=== PATIENT | male | born 1950 | race Caucasian/White ===

== ENCOUNTER 2020-01-13 08:31 | Inpatient (IN) ==
--- NOTE | 2019-12-29 10:31 | Anesthesiology Consultation ---
Date of Service December 29, 2019 Assessment & Plan (1) Encounter for pre-operative examination: Per PAT assessment on 12/28: Travel screen negative. No known COVID-19 positive contacts. No current COVID-19 related symptoms. No hx of COVID-19 testing. - Cardiology office visit: 11/25/19: "Patient feeling well from a cardiovascular perspective. Denies chest pain or unusual shortness of breath. Metoprolol dose reduced approximately 2 months ago secondary to dyspnea.. Functional capacity is stable." F/U 6 months recommended. Chart Review Chart Review: Acceptable Risk for Surgery and Patient seen in Pre Admission Testing Teaching & Discussion Pre-Anesthesia Teaching/Discussion Notes: Instructed NPO after midnight before surgery,except medications with 15 cc of water. Medication instructions provided according to the [facility] guidelines. History Surgery Operation Date: 01/13/20 07:45 Proposed Procedures p L5-S1 Decompression Fusion, Spinal Cord Monitoring - Jcarlos Mathews DO Height/Weight Height: 6 ft 1 in Weight: 106.9 kg Allergies Allergy/AdvReac Type Severity Reaction Status Date / Time gabapentin AdvReac dizziness Verified 12/29/19 10:48 Medications Home Medications Medication Instructions Recorded Confirmed Last Taken ascorbic acid (vitamin C) [Vitamin 1 g PO QAM 12/29/19 12/29/19 Unknown C] atorvastatin 20 mg PO QAM 12/29/19 12/29/19 Unknown cholecalciferol (vitamin D3) 1,000 unit PO QAM 12/29/19 12/29/19 Unknown [Vitamin D3] fexofenadine 180 mg PO QAM 12/29/19 12/29/19 Unknown fish,bora,flax oils-om3,6,9no1 1 cap PO QAM 12/29/19 12/29/19 Unknown [[place] 3-6-9] garlic 1,000 mg PO QAM 12/29/19 12/29/19 Unknown hydrochlorothiazide 25 mg PO QAM 12/29/19 12/29/19 Unknown hydrocortisone 1 applic TOPICAL TID 12/29/19 12/29/19 Unknown meloxicam 7.5 mg PO DAILY PRN 12/29/19 12/29/19 Unknown metoprolol tartrate 50 mg PO BID 12/29/19 12/29/19 Unknown hlztkojv-hbp-hrour-vit K-lycop 1 tab PO QAM 12/29/19 12/29/19 Unknown [One-A-Day Men's Multivitamin] omeprazole 20 mg PO BID 12/29/19 12/29/19 Unknown polyethylene glycol 3350 [Miralax] 17 g PO HS 12/29/19 12/29/19 Unknown pseudoephedrine HCl 120 mg PO Q12H PRN 12/29/19 12/29/19 Unknown saw palmetto fruit 450 mg PO QAM 12/29/19 12/29/19 Unknown tamsulosin 0.4 mg PO QAM 12/29/19 12/29/19 Unknown zinc 50 mg PO QAM 12/29/19 12/29/19 Unknown Past Medical History Medical History Chronic kidney disease, stage 3 DDD (degenerative disc disease) GERD (gastroesophageal reflux disease) controlled Hearing deficit B/L DOBBINS History of anxiety History of intestinal obstruction HTN (hypertension) Hyperlipidemia Introsusception s/p surgical correction at 11 days old Osteoarthritis Prediabetes Sleep apnea did not tolerate device/since has had significant weight loss Spinal stenosis Exercise / Class Metabolic Activity III < 4 Walking/Shop/Light housework Past Family History Family History Mother Diabetes Other No family history of adverse response to anesthesia Past Surgical History Surgical History History of cholecystectomy History of colonoscopy History of ERCP History of esophagogastroduodenoscopy (EGD) History of gastrostomy History of laparotomy x 2 for intestinal obstruction, lysis of adhesions - obstruction did not resolved after first surgery and 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 during second procedure requring emergency life flight to [facility] History of lumbar surgery X 3 History of tonsillectomy Status post trigger finger release Past Anesthesia History No Family Hx of Anesthesia Complications and Other (post-op constipation) History of PONV No Hx of PONV and No Hx of Motion Sickness Social History Smoking Status: Former smoker tobacco type: cigarettes Do You Dip or Chew Tobacco: No (QUIT YEARS AGO) Smoking End Date: QUIT YEARS AGO Hx Alcohol Use: Yes alcohol intake frequency: holidays/special occasions only Hx Substance Use: No Review of Systems Patient denies chest pain, shortness of breath, fever, chills, cough, wheezing, palpitations. Physical Exam Vital Signs VITALS BP 144/74 P 64 TEMP 98.6 SP02 95%RA RESP 18 PHYSICAL Full neck and c-spine range of motion. Full TMJ range of motion. TMD 3 finger breaths Mallampati Score 3 Dentition: partial upper Lungs: clear throughout to auscultation Cardiac: regular rate and rhythm, no murmurs noted Spine: normal Carotid arteries: negative bruit Extremities: no edema Testing Laboratory Results PT 10.4 Seconds (9.0-12.0) 12/29/19 11:05 INR 1.0 (0.9-1.1) 12/29/19 11:05 APTT 27.3 Seconds (21.0-31.0) 12/29/19 11:05 Urine Color Yellow 12/29/19 11:05 Urine Appearance Clear (Clear) 12/29/19 11:05 Urine pH 6.0 (4.5-7.5) 12/29/19 11:05 Ur Specific Economy 1.022 (1.000-1.030) 12/29/19 11:05 Urine Protein Negative (Negative) 12/29/19 11:05 Urine Glucose (UA) Negative (Negative) 12/29/19 11:05 Urine Ketones Negative (Negative) 12/29/19 11:05 Urine Nitrite Negative (Negative) 12/29/19 11:05 Ur Leukocyte Esterase Negative (Negative) 12/29/19 11:05 Blood Type O Positive 12/29/19 11:05 Antibody Screen NEGATIVE 12/29/19 11:05 12/01/19 WBC 7.75 H/H 16.8/49.7 PLATELETS 235 SODIUM 139 POTASSIUM 4.4 CHLORIDE 101 CO2 27 BUN 23 CREATININE 1.2 GLUCOSE 103 HGBA1C 5.9% Electrocardiogram Date: 12/15/19 SB with first degree AVB at 58bpm. Chest X-Ray Date: 09/03/19 Findings: + NAD
--- NOTE | 2019-12-29 11:11 | PAT Medication Instructions ---
Medication Instructions Date of Service December 29, 2019 Home Medications ascorbic acid (vitamin C) [Vitamin C] 1 g PO QAM atorvastatin 20 mg PO QAM cholecalciferol (vitamin D3) [Vitamin D3] 1,000 unit PO QAM fexofenadine 180 mg PO QAM fish,bora,flax oils-om3,6,9no1 [[place] 3-6-9] 1 cap PO QAM garlic 1,000 mg PO QAM hydrochlorothiazide 25 mg PO QAM hydrocortisone 1 applic TOPICAL TID meloxicam 7.5 mg PO DAILY PRN metoprolol tartrate 50 mg PO BID ujvivxpc-run-jxjuy-vit K-lycop [One-A-Day Men's Multivitamin] 1 tab PO QAM omeprazole 20 mg PO BID polyethylene glycol 3350 [Miralax] 17 g PO HS pseudoephedrine HCl 120 mg PO Q12H PRN saw palmetto fruit 450 mg PO QAM tamsulosin 0.4 mg PO QAM zinc 50 mg PO QAM ASK your surgeon for instructions meloxicam 7.5 mg PO DAILY PRN STOP taking 2 weeks before surgery zinc 50 mg PO QAM saw palmetto fruit 450 mg PO QAM fish,bora,flax oils-om3,6,9no1 [[place] 3-6-9] 1 cap PO QAM garlic 1,000 mg PO QAM STOP taking 24 hours before surgery hydrocortisone 1 applic TOPICAL TID DO NOT take the morning of surgery pseudoephedrine HCl 120 mg PO Q12H PRN mzzirtcp-bmi-shfpr-vit K-lycop [One-A-Day Men's Multivitamin] 1 tab PO QAM hydrochlorothiazide 25 mg PO QAM fexofenadine 180 mg PO QAM ascorbic acid (vitamin C) [Vitamin C] 1 g PO QAM cholecalciferol (vitamin D3) [Vitamin D3] 1,000 unit PO QAM Take morning of surgery With a small sip of water, OTHERWISE NOTHING TO EAT OR DRINK AFTER MIDNIGHT: tamsulosin 0.4 mg PO QAM omeprazole 20 mg PO BID metoprolol tartrate 50 mg PO BID atorvastatin 20 mg PO QAM Take evening before surgery pseudoephedrine HCl 120 mg PO Q12H PRN omeprazole 20 mg PO BID polyethylene glycol 3350 [Miralax] 17 g PO HS metoprolol tartrate 50 mg PO BID Other Notes If you have any questions please call us at [phone] or [phone] or [phone] or [phone]
[2019-12-29 12:08] LABS: Appearance Urine Clear (Clear); Bilirubin Urine Negative (Negative); Blood Urine Negative (Negative); Color Urine Yellow; Glucose Urine UA Negative (Negative); Ketones Urine Negative (Negative); Leukocyte Esterase Urine Negative (Negative); Nitrite Urine Negative (Negative); Protein Urine Negative (Negative); Specific Gravity Urine 1.022 (1.000-1.030); Urobilinogen Urine Negative (Negative)
[2019-12-29 12:17] LABS: Partial Thromboplastin Time 27.3 Seconds (21.0-31.0); Prothrombin Time 10.4 Seconds (9.0-12.0)
[~2020-01-13 08:31] MED LIST: ACETAMINOPHEN 500 MG TAB PO SCH; CEFAZOLIN 2000MG 2,000 MG/15 ML SYR IV SCH; CeleBREX 200 MG CAP PO SCH; GABAPENTIN 300 MG CAP PO SCH; LR 15ML/HR IV SCH
[2020-01-13] MEDS ORDERED: MIDAZOLAM HCL 1 MG/ML 2ML VIAL ONE (09:24)
[2020-01-13] MEDS ORDERED: DEXAMETHASONE SOD INJ 4 MG/ML VIAL ONE (09:24)
[2020-01-13] MEDS ORDERED: ONDANSETRON INJ 2 MG/ML 2 ML VIAL ONE ×2 (09:24→11:56)
[2020-01-13] MEDS ORDERED: GLYCOPYRROLATE 0.2 MG/ML VIAL ONE ×2 (09:24→11:56)
[2020-01-13] MEDS ORDERED: NEOSTIGMINE METHYLSULFATE 5 MG/5 ML SYR ONE (09:24)
[2020-01-13] MEDS ORDERED: PROPOFOL IV EMULSION 10 MG/ML 20 ML VIAL IV ONE (09:24)
[2020-01-13] MEDS ORDERED: LIDOCAINE HCL 2% 2 ML VIAL/AMP(20MG/ML) INFIL ONE (09:24)
[2020-01-13] MEDS ORDERED: fentaNYL citrate 100 MCG/2 ML VIAL ONE (09:24)
--- NOTE | 2020-01-13 09:27 | History & Physical Bridge Note ---
Date of Service January 13, 2020 History & Physical Bridge Note I have examined the patient, reviewed the History & Physical and in the interval since the performance of the History & Physical I have noted the following changes of clinical significance: no changes noted
[2020-01-13] MEDS ORDERED: HYDROmorphone INJ 2 MG/ML SYR/VIAL IV PRN (09:30)
[2020-01-13] MEDS ORDERED: ONDANSETRON INJ 2 MG/ML 2 ML VIAL IV PRN ×2 (09:30→13:31)
[2020-01-13] MEDS ORDERED: PROMETHAZINE HCL 6.25 MG in SODIUM CHLORIDE 0.9% 50 ML IV PRN (09:30)
[2020-01-13] MEDS ORDERED: ePHEDrine sulfate 50 MG/ML AMP IV PRN (09:30)
[2020-01-13] MEDS ORDERED: ATROPINE SULFATE 0.1 MG/ML 10ML SYR IV PRN (09:30)
--- NOTE | 2020-01-13 09:30 | History & Physical Report ---
Date of Service January 13, 2020 Assessment & Plan (1) Neurogenic claudication due to lumbar spinal stenosis: L5-S1 decompression fusion Present on Admission?: Yes History of Present Illness Chief Complaint: Back and leg pain Primary Care Provider: Arnol Gandhi DO This is a 69-year-old male well-known to me the presents with worsening back and leg pain. After failing extensive course of nonoperative care is here for surgical invention. Allergies Allergy/AdvReac Type Severity Reaction Status Date / Time gabapentin AdvReac Intermediate dizziness Verified 01/13/20 08:53 Home Medications Home Medications Medication Instructions Recorded Confirmed Type ascorbic acid (vitamin C) [Vitamin 1 g PO QAM 12/29/19 01/13/20 History C] atorvastatin 20 mg PO QAM 12/29/19 01/13/20 History cholecalciferol (vitamin D3) 1,000 unit PO QAM 12/29/19 01/13/20 History [Vitamin D3] fexofenadine 180 mg PO QAM 12/29/19 01/13/20 History fish,bora,flax oils-om3,6,9no1 1 cap PO QAM 12/29/19 01/13/20 History [[place] 3-6-9] garlic 1,000 mg PO QAM 12/29/19 01/13/20 History hydrochlorothiazide 25 mg PO QAM 12/29/19 01/13/20 History hydrocortisone 1 applic TOPICAL TID 12/29/19 01/13/20 History meloxicam 7.5 mg PO DAILY PRN 12/29/19 01/13/20 History metoprolol tartrate 50 mg PO BID 12/29/19 01/13/20 History snkrzvrr-ere-pfjii-vit K-lycop 1 tab PO QAM 12/29/19 01/13/20 History [One-A-Day Men's Multivitamin] omeprazole 20 mg PO BID 12/29/19 01/13/20 History polyethylene glycol 3350 [Miralax] 17 g PO HS 12/29/19 01/13/20 History pseudoephedrine HCl 120 mg PO Q12H PRN 12/29/19 01/13/20 History saw palmetto fruit 450 mg PO QAM 12/29/19 01/13/20 History tamsulosin 0.4 mg PO QAM 12/29/19 01/13/20 History zinc 50 mg PO QAM 12/29/19 01/13/20 History Past Med/Surg History Medical History Chronic kidney disease, stage 3 DDD (degenerative disc disease) GERD (gastroesophageal reflux disease) controlled Hearing deficit B/L DOBBINS History of anxiety History of intestinal obstruction HTN (hypertension) Hyperlipidemia Introsusception s/p surgical correction at 11 days old Osteoarthritis Prediabetes Sleep apnea did not tolerate device/since has had significant weight loss Spinal stenosis Surgical History History of cholecystectomy History of colonoscopy History of ERCP History of esophagogastroduodenoscopy (EGD) History of gastrostomy History of laparotomy x 2 for intestinal obstruction, lysis of adhesions - obstruction did not resolved after first surgery and 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 during second procedure requring emergency life flight to [facility] History of lumbar surgery X 3 History of tonsillectomy Status post trigger finger release Family History Mother Diabetes Other No family history of adverse response to anesthesia Social History Preferred Language: Panamanian Communication Ability: Effective Regulator Assembler Required: No Beliefs That Will Affect Care: None Current Living Situation: Spouse Feels Safe at Home: Yes Safety Concerns: Feels Safe At This Time Smoking Status: Former smoker Tobacco Type: cigarettes ; Do You Dip or Chew Tobacco: No (QUIT YEARS AGO) ; Smoking End Date: QUIT YEARS AGO ; Second Hand Exposure: No ; Tobacco Cessation Education Requested by Patient: No Hx Alcohol Use: Yes Hx Substance Use: No Physical Exam Physical Exam: Patient is alert and oriented neurologically intact. Heart regular rate and rhythm. Lungs clear to auscultation.
[2020-01-13] MEDS ORDERED: BUPIVACAINE/EPINEPHRINE 0.25% 1:200,000 30 ML VIAL ONE (09:46)
[2020-01-13] MEDS ORDERED: BACITRACIN INJ 50,000 UNIT VIAL ONE (09:47)
[2020-01-13] MEDS ORDERED: FLOSEAL HEMOSTATIC MATRIX 10ML TOP ONE (10:39)
--- NOTE | 2020-01-13 12:01 | Operative Report ---
Post Operative Report Pre & Post Diagnosis Operation Date: 01/13/20 10:05 Pre-Op Diagnosis: Lumbar Spinal Stenosis Post-Op Diagnosis: Lumbar Spinal Stenosis I identified the patient and participated in the time-out.: Yes Procedure Operation Date: 01/13/20 10:05 Actual Procedures #1 lumbar decompression with bilateral medial facetectomies and foraminotomies. #2 posterior spinal fusion L5-S1. #3 placement posterior instrumentation L5-S1. #4 interbody fusion L5-S1. #5 placement of titanium interbody cage 12 x 26 mm at L5-S1. #6 placement locally harvested morselized autograft in the posterior lateral gutters. #7 placement of locally harvested morselized autograft in the posterior lateral gutters. Surgeon Jcarlos Mathews DO Non Destructive Testing Supervisor Mikayla Gomez Estimated Blood Loss 150 Findings Consistent with Post-Op Diagnosis Specimens None Indications This is a 69-year-old male well-known to me the presents above-mentioned diagnos is after failing extensive course of nonoperative care is here for the above- mentioned procedure. Description of Procedure Patient was met with preop the case cussed questions dressed with heparin patient was taken back to operative suite underwent an patient placed in a prone position Angel table on top of the Kyrie frame. All bony prominences well- padded eyes inspected to ensure no external pressure placed upon the. This point the lumbar spine was prepped and draped in normal sterile fashion. Sharp dissection with the assistance of Bovie cautery was performed down to and exposing the lamina and transverse processes of L5 and the sacral ala bilaterally. From caudal cephalad fashion complete laminectomy of L5 was performed including bilateral medial facetectomies and foraminotomies addressing severe spinal stenosis. Pedicle screws were then placed in L5 and S1 bilaterally with assistance of fluoroscopy and appropriately sized aleta placed. By way of a transforaminal portion right complete discectomy was performed endplates curetted to subcortical bleeding bone and a 12 x 26 mm titanium cage filled with osteo-bone graft tapped in position. The rods were then locked into final position bilaterally. The transverse processes of L5 and sacral ala burred to subcortical bleeding bone. Infuse collagen sponge master graft local autograft was then placed in the posterior lateral gutters. 15 round FRIEDA drain inserted. Incision was then closed with 1 Vicryl in the fascia 2-0 Vicryl subcutaneously and 4 Monocryl for final skin closure. Steri-Strip sterile dressings placed. Patient will continue PACU stable condition. Please note spinal cord monitoring was utilized that the procedure no changes noted. Lastly Mikayla Gomez was present throughout the entire procedure involved the patient positioning complex portions of the surgery and final skin closure. I attest to the content of the Intraoperative Record and any orders documented therein. Any exceptions are noted below.
--- NOTE | 2020-01-13 12:33 | Fluoroscopy Report ---
FL lumbar spine 2-3V CLINICAL HISTORY: L5-S1 DECOMPRESSION/FUSION/INTERBODY COMPARISON STUDY: X-ray study dated 11/13/2013 FLUOROSCOPY TIME: 22 seconds. NUMBER OF FLUOROSCOPIC IMAGES: 2 FINDINGS: 2 intraoperative fluoroscopic spot images are provided for interpretation. There is evidenc e for prior L3-4 and L4-5 discectomies interbody fusions. There is now evidence for an L5-S1 discecto mies interbody fusion with interbody implant. There is posterior pedicle screw fixation. IMPRESSION: Intraoperative fluoroscopic spot images demonstrating postsurgical changes of an L5-S1 s yordy decompression and fusion ACT 112: Negative or not required by law. Electronically signed by: Silverio Montgomery M.D. 01/13/2020 12:32 PM
[2020-01-13] MEDS: fentaNYL citrate 100 MCG/2 ML VIAL IV PRN ×2 (12:45→12:50)
--- NOTE | 2020-01-13 13:01 | Anesthesiology Progress Note ---
Date of Service January 13, 2020 Anesthesia Post Procedure Vital Signs Vital Signs: Temp Pulse Pulse Resp BP BP Pulse Ox 01/13/20 12:55 67 14 124/67 95 01/13/20 12:45 73 16 130/73 93 01/13/20 12:35 81 15 105/56 L 97 01/13/20 12:25 76 14 105/53 L 100 01/13/20 12:18 36.2 C L 85 16 130/59 L 97 01/13/20 09:16 36.6 C 64 18 137/80 99 Pain Intensity Upper Back: Pain Intensity: 6 Transfer of Care Handoff Completed per policy Notes Mental Status: alert / awake / arousable Patient Amnestic to Procedure: Yes Nausea / Vomiting: adequately controlled Pain: adequately controlled Airway Patency, RR, SpO2: stable & adequate BP & HR: stable & adequate Hydration State: stable & adequate Anesthetic Complications: no major complications apparent
[2020-01-13] MEDS ORDERED: DO NOT ADMINISTER FLU VACCINE PRN (13:31)
[2020-01-13] MEDS ORDERED: ALUMINUM/MAGNESIUM SUSP 30 ML UDC PO PRN (13:31)
[2020-01-13] MEDS ORDERED: MAGNESIUM HYDROXIDE SUSP 30 ML UDC PO PRN (13:31)
[2020-01-13] MEDS ORDERED: NALOXONE HCL 0.4 MG/1 ML VIAL/CARP IV PRN (13:31)
[2020-01-13] MEDS ORDERED: LORazepam 0.5 MG/1 ML VIAL IV PRN (13:31)
[2020-01-13] MEDS ORDERED: bisacodyL 10 MG SUPP PR PRN (13:31)
[2020-01-13] MEDS ORDERED: DO NOT ADMINISTER PNEUMOCOCCAL VACCINE PRN (13:31)
[2020-01-13] MEDS ORDERED: SOD PHOSPHATE/SOD BIPHOSPHATE ENEMA 132 ML BTL PR PRN (13:31)
[2020-01-13] MEDS ORDERED: PROMETHAZINE HCL 12.5 MG in SODIUM CHLORIDE 0.9% 50 ML IV PRN (13:31)
[2020-01-13] MEDS ORDERED: LORazepam 0.5 MG TAB PO PRN (13:31)
[2020-01-13] MEDS ORDERED: ONDANSETRON 4 MG OD TAB PO PRN (13:31)
[2020-01-13] MEDS ORDERED: OXYCODONE HCL IR 5 MG TAB (IMMEDIATE RELEASE) PO PRN (13:31)
[2020-01-13] MEDS ORDERED: ACETAMINOPHEN 1,000 MG/100 ML VIAL IV PRN (13:31)
[2020-01-13] MEDS ORDERED: ACETAMINOPHEN 500 MG TAB PO PRN (13:31)
[2020-01-13] MEDS ORDERED: HYDROmorphone INJ 1 MG/ML SYRINGE IV PRN (13:31)
[2020-01-13] MEDS ORDERED: HYDROmorphone INJ 0.5 MG/0.5 ML SYR IV PRN (13:31)
[2020-01-13] MEDS ORDERED: FAMOTIDINE 20 MG TAB PO PRN (13:31)
[2020-01-13] MEDS ORDERED: TRAMADOL HCL 50 MG TABLET PO PRN (13:31)
[2020-01-13] MEDS ORDERED: METOCLOPRAMIDE HCL INJ 5 MG/ML 2 ML VIAL IV PRN (13:31)
[2020-01-13] MEDS: LACTATED RINGER'S 1,000 ML IV SCH ×2 (14:08→23:15)
--- NOTE | 2020-01-13 14:33 | Consultation ---
Date of Consultation January 13, 2020 Assessment & Plan (1) Neurogenic claudication due to lumbar spinal stenosis: (2) Status post lumbar surgery: Status post L5-S1 lumbar decompression fusion POD #[address] Mathews EBL 150 mL; FRIEDA drain 80 mL Tolerated procedure well Pain/wound management per Ortho Activity and therapy as directed by Ortho Encourage incentive spirometry and wean O2 as able Follow H&H, preoperatively 17.0 and 50.9 DVT prophylaxis SCDs and teds per Ortho (3) HTN (hypertension): On metoprolol and HCTZ as outpatient Hold HCTZ until volume status reassessed in a.m. (4) Hyperlipidemia: Continue statin (5) Prediabetes: A1c 5.9 Current lifestyle diet modifications (6) Chronic kidney disease, stage 3: baseline cr 1.2 avoid nephrotoxic agents, monitor (7) Sleep apnea: Noncompliant with CPAP/BiPAP and has not used in 2010 Monitor O2 saturations (8) DVT prophylaxis: per ortho Disposition: per primary Follow up: PCP Dr. Gandhi upon discharge Pt was seen and examined in collaboration with Dr. Callahan, please see addendum Starting 01/14/2020 patient be under the care of Dr. Mckeon Thank you for this consultation. We will follow the patient with you during their hospital stay. You can reach a member of the [facility] Hospitalist Team 11/02 via pager @ [phone]. Supervising Physician Co-Signing Physician Notes Attending addendum: Patient seen and examined, care coordinated with Yaneth Phan PA-C 69-year-old male status post spinal decompression surgery Recovering well postop Denies of any significant back pain, no radiation pain in lower extremities, able to be out of bed, walked today independently Complaint of shortness of breath, no cough, no fever or chills Physical exam: As outlined by Yaneth Phan PA-C Assessment plan: Status post spinal decompression surgery: Continue management per recommendation/protocol of spinal orthopedics Back pain/postsurgical pain appears to be well controlled PT OT as per orthopedics Take H&H in a.m. to assess for post operative/acute blood loss anemia Please referred to further documentation by Yaneth Phan PA-C for discussion of other chronic issues Renae Callahan MD History of Present Illness Requesting Physician: Dr. Mathews Reason for Consultation: Postop medical management Attending Physician: Jcarlos Mathews DO History of Present Illness This is a 69-year-old male who has significant past medical history of HTN, HLD, prediabetes, LATA noncompliant with CPAP, history of intussusception, GERD, CKD stage III, BPH who presents to [facility] for elective lumbar procedure by Dr. Mathews secondary to lumbar spinal stenosis with neurogenic claudication. Postoperatively he is feeling very tired. He is easily arousable. He denies fever, chills, sweats, dizziness, lightheadedness, chest pain, shortness breath, cough, nausea, vomiting, abdominal pain. Prior to procedure he denies any difficulty moving bowels or passing urine. Does listen to incisional discomfort but otherwise denies any radicular symptoms, numbness, tingling. He does have a history of HTN controlled on metoprolol and HCTZ. He did take the Toprol titrate this morning. He does have history of LATA but has been noncompliant does not use CPAP since 2010. He does have history of HLD treated with atorvastatin. Allergies Allergy/AdvReac Type Severity Reaction Status Date / Time gabapentin AdvReac Intermediate dizziness Verified 01/13/20 08:53 Home Medications Home Medications Medication Instructions Recorded Confirmed Type ascorbic acid (vitamin C) [Vitamin 1 g PO QAM 12/29/19 01/13/20 History C] atorvastatin 20 mg PO QAM 12/29/19 01/13/20 History cholecalciferol (vitamin D3) 1,000 unit PO QAM 12/29/19 01/13/20 History [Vitamin D3] fexofenadine 180 mg PO QAM 12/29/19 01/13/20 History fish,bora,flax oils-om3,6,9no1 1 cap PO QAM 12/29/19 01/13/20 History [[place] 3-6-9] garlic 1,000 mg PO QAM 12/29/19 01/13/20 History hydrochlorothiazide 25 mg PO QAM 12/29/19 01/13/20 History hydrocortisone 1 applic TOPICAL TID 12/29/19 01/13/20 History meloxicam 7.5 mg PO DAILY PRN 12/29/19 01/13/20 History metoprolol tartrate 50 mg PO BID 12/29/19 01/13/20 History cxvejnop-hot-ncjob-vit K-lycop 1 tab PO QAM 12/29/19 01/13/20 History [One-A-Day Men's Multivitamin] omeprazole 20 mg PO BID 12/29/19 01/13/20 History polyethylene glycol 3350 [Miralax] 17 g PO HS 12/29/19 01/13/20 History pseudoephedrine HCl 120 mg PO Q12H PRN 12/29/19 01/13/20 History saw palmetto fruit 450 mg PO QAM 12/29/19 01/13/20 History tamsulosin 0.4 mg PO QAM 12/29/19 01/13/20 History zinc 50 mg PO QAM 12/29/19 01/13/20 History Patient History Medical History Chronic kidney disease, stage 3 DDD (degenerative disc disease) GERD (gastroesophageal reflux disease) controlled Hearing deficit B/L DOBBINS History of anxiety History of intestinal obstruction HTN (hypertension) Hyperlipidemia Introsusception s/p surgical correction at 11 days old Osteoarthritis Prediabetes Sleep apnea did not tolerate device/since has had significant weight loss Spinal stenosis Surgical History History of cholecystectomy History of colonoscopy History of ERCP History of esophagogastroduodenoscopy (EGD) History of gastrostomy History of laparotomy x 2 for intestinal obstruction, lysis of adhesions - obstruction did not resolved after first surgery and 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 during second procedure requring emergency life flight to [facility] History of lumbar surgery X 3 History of tonsillectomy Status post trigger finger release Family History (Updated 01/13/20 @ 14:27 by Yaneth Nielsen PA-C) Mother Diabetes Father Cancer Social History Preferred Language: Malay Communication Ability: Effective Basket Weaver Required: No Beliefs That Will Affect Care: None Current Living Situation: Spouse Feels Safe at Home: Yes Safety Concerns: Feels Safe At This Time Smoking Status: Former smoker Tobacco Type: cigarettes ; Do You Dip or Chew Tobacco: No (QUIT YEARS AGO) ; Smoking End Date: QUIT YEARS AGO ; Second Hand Exposure: No ; Tobacco Cessation Education Requested by Patient: No Hx Alcohol Use: Yes Hx Substance Use: No Review of Systems Review of Systems: All systems reviewed & are unremarkable except as noted in HPI & below Physical Exam Physical Exam: Constitutional: WD/WN, vitals as above, NAD, lying in bed, pleasant, conversing easily Head: Normocephalic, Atraumatic Eyes: PERRL, conjunctivae normal, anicteric sclerae ENMT: external ear and nose normal, oropharynx normal Neck: trachea midline, no thyromegaly normal visual inspection Respiratory: On supplemental O2 via NC, normal respiratory effort, lungs clear to auscultation, no wheeze, rales, rhonchi. Normal insp/exp effort, no accessory muscle use Cardiovascular: RRR, no murmur, no edema, bilateral teds and SCDs in place, bilateral pedal pulse +2 and equal. Vessels: no JVD or carotid bruit Chest: normal inspection of chest Abdomen: normal bowel sounds, soft, nontender, no hepatosplenomegaly Musculoskeletal: no cyanosis or clubbing, extremities motor strength 5/5 Skin: no rashes, warm and dry normal turgor, lumbar dressing CDI, FRIEDA drain with serosanguineous drainage, NVI distally Neurologic: PERRL, EOMI, accommodation nl, no face palsy, no dysarthria CN's II-XI intact bilaterally and moves all extremities Psychiatric: A+Ox3, euthymic affect Lymphatic: no cervical or axillary lymphadenopathy : deferred Results & Data ([facility]) Vital Signs (Past 12 Hours) Vital Signs Temp Pulse Pulse Resp BP BP Pulse Ox 01/13/20 14:01 64 16 123/70 97 01/13/20 13:05 36.5 C 69 15 111/55 L 93 01/13/20 12:55 67 14 124/67 95 01/13/20 12:45 73 16 130/73 93 01/13/20 12:35 81 15 105/56 L 97 01/13/20 12:25 76 14 105/53 L 100 01/13/20 12:18 36.2 C L 85 16 130/59 L 97 01/13/20 09:16 36.6 C 64 18 137/80 99 Laboratory Results Preoperative lab from 12/01/2019 A1c 5.9, creatinine 1.2 H&H 17.0 and 50.9, WBC 7.93, platelet 190 Diagnostic Findings CXR: No acute abnormality Lumbar Spine Xray: IMPRESSION: Intraoperative fluoroscopic spot images demonstrating postsurgical changes of an L5-S1 spinal decompression and fusion Medications Administered Lactated Ringer's (Lr) 1,000 mls @ 100 mls/hr IV .Q10H [facility] Stop: 02/12/20 13:30 Last Admin: 01/13/20 14:08 Dose: 100 mls/hr Documented by: [id number] Discontinued Medications Acetaminophen (Tylenol) 1,000 mg PO PREOP [facility] Stop: 01/13/20 18:00 Last Admin: 01/13/20 09:35 Dose: 1,000 mg Documented by: [id number] Bacitracin (Bacitracin) Confirm Administered Dose 50,000 units .ROUTE .STK-MED ONE Stop: 01/13/20 09:48 Last Admin: 01/13/20 11:58 Dose: 50,000 units Documented by: [id number] Bupivacaine HCl/Epinephrine Bitart (Bupivacaine 0.25%-Epi [id number]) Confirm Administered Dose 30 ml .ROUTE .STK-MED ONE Stop: 01/13/20 09:47 Last Admin: 01/13/20 11:58 Dose: 23 ml Documented by: [id number] Celecoxib (Celebrex) 200 mg PO PREOP [facility] Stop: 01/13/20 18:00 Last Admin: 01/13/20 09:35 Dose: 200 mg Documented by: [id number] Fentanyl Citrate (Fentanyl Citrate) 50 mcg IV Q5M PRN PRN Reason: PACU Use Only-Pain Stop: 01/13/20 17:30 Last Admin: 01/13/20 12:50 Dose: 50 mcg Documented by: [id number] Admin: 01/13/20 12:45 Dose: 50 mcg Documented by: [id number] Gabapentin (Neurontin) 300 mg PO PREOP [facility] Stop: 01/13/20 18:00 Last Admin: 01/13/20 09:35 Dose: Not Given Documented by: [id number] Lactated Ringer's (Lr) 1,000 mls @ 15 mls/hr IV .Q24H [facility] Stop: 01/14/20 05:59 Last Infusion: 01/13/20 10:02 Dose: 0 mls/hr Documented by: [id number] Admin: 01/13/20 09:07 Dose: 15 mls/hr Documented by: [id number] Cefazolin Sodium (Ancef 2000mg) 2,000 mg in 15 mls @ 3.75 mls/min IV PREOP MALAIKA; Protocol Stop: 01/13/20 18:00 Last Admin: 01/13/20 10:02 Dose: 3.75 mls/min Documented by: [id number] Miscellaneous (Floseal Hemostatic Matrix 10ml) 10 ml TOP ONCE ONE Stop: 01/13/20 10:40 Last Admin: 01/13/20 11:59 Dose: 12 ml Documented by: [id number] ECG Rate (beats per minute): 58 Rhythm: sinus bradycardia Findings: + 1st degree AV block
[2020-01-13] MEDS: KETOROLAC TROMETHAMINE 15 MG/ML VIAL IV SCH ×2 (16:37→21:18)
[2020-01-13] MEDS: CEFAZOLIN 2000MG 2,000 MG/15 ML SYR IV SCH (17:45)
[2020-01-13] MEDS: DOCUSATE SODIUM/SENNA 50/8.6MG TAB PO SCH (21:16)
[2020-01-13] MEDS: PANTOprazole 40 MG TAB PO SCH (21:17)
[2020-01-13] MEDS: METOPROLOL TARTRATE 50 MG TAB PO SCH (21:33)
[2020-01-14] MEDS: CEFAZOLIN 2000MG 2,000 MG/15 ML SYR IV SCH (04:12)
[2020-01-14] MEDS: KETOROLAC TROMETHAMINE 15 MG/ML VIAL IV SCH ×2 (04:14→10:13)
[2020-01-14] MEDS: POLYETHYLENE (MIRALAX) 17 GM PACK PO SCH ×3 (04:27→19:05)
[2020-01-14 07:01] LABS: Basophils # (auto) 0.01 K/uL (0-0.2); Basophils % (auto) 0.1 %; Eosinophils # (auto) 0.01 K/uL (0-0.5); Eosinophils % (auto) 0.1 %; Hemoglobin 14.4 g/dL (14.0-18.0); Immature Granulocytes # (auto) 0.05 K/uL (0.00-0.02); Immature Granulocytes % (auto) 0.3 %; Lymphocytes # (auto) 1.36 K/uL (1.2-3.4); Lymphocytes % (auto) 9.1 %; Mean Corpuscular Hemoglobin 30.6 pg (25-34); Mean Corpuscular Hgb Conc 32.7 g/dL (32-36); Mean Corpuscular Volume 93.4 fL (80-100); Mean Platelet Volume 9.5 fL (7.4-10.4); Monocytes # (auto) 1.29 K/uL (0.11-0.59); Monocytes % (auto) 8.6 %; Neutrophils # (auto) 12.29 K/uL (1.4-6.5); Neutrophils % (auto) 81.8 %; Platelet Count 212 K/uL (130-400); RDW Coefficient of Variation 12.4 % (11.5-14.5); RDW Standard Deviation 42.5 fL (36.4-46.3); Red Blood Count 4.71 M/uL (4.7-6.1); White Blood Count 15.01 K/uL (4.8-10.8)
[2020-01-14 07:31] LABS: Calcium 8.4 mg/dl (8.5-10.1); Creatinine Clr Calc Pharmacy 64.4 ml/min; Est GFR (African American) 61.3; Est GFR (Non-African American) 52.9
[2020-01-14] MEDS ORDERED: hydroCHLOROthiazide 25 MG TAB PO SCH (09:00)
--- NOTE | 2020-01-14 09:20 | Hospitalist Progress Note ---
Date of Service January 14, 2020 Assessment & Plan (1) Neurogenic claudication due to lumbar spinal stenosis: (2) Status post lumbar surgery: Status post L5-S1 lumbar decompression fusion POD #[address] Mathews EBL 150 mL; FRIEDA drain 460 mL Tolerated procedure well Pain/wound management per Ortho Activity and therapy as directed by Ortho Encourage incentive spirometry and wean O2 as able Follow H&H, preoperatively 17.0 and 50.9 (h/h 14.4 and 44.0) DVT prophylaxis SCDs and teds per Ortho (3) Leukocytosis: wbc 15k likely in setting of pre op steroids no fever or infectious sx (4) HTN (hypertension): On metoprolol and HCTZ as outpatient resume HCTZ (5) Hyperlipidemia: Continue statin (6) Prediabetes: A1c 5.9 Current lifestyle diet modifications FBS 130 (7) Chronic kidney disease, stage 3: baseline cr 1.2 bun/cr 20 and 1.34 today avoid nephrotoxic agents, monitor (8) Sleep apnea: Noncompliant with CPAP/BiPAP and has not used in 2010 Monitor O2 saturations (9) DVT prophylaxis: per ortho Disposition: per primary Follow up: PCP Dr. Gandhi upon discharge Pt was seen and examined in collaboration with , please see addendum Thank you for this consultation. We will follow the patient with you during their hospital stay. You can reach a member of the [facility] 11/02 via pager @ [phone]. Admission and Anticipated Discharge Date Admission Date: January 13, 2020 Supervising Physician Co-Signing Physician Notes Physical Exam Gen-AAO x 3, NAD, Afebrile Head-NCAT, EOMI, PERRLA, Anicteric Sclera, No Posterior Pharyngeal Erythema Neck-Supple, No JVD, No Thyromegaly, No Masses, No LAD, No Bruits Lungs-Clear to Auscultation Bilaterally, No Rales, No Rhonchi, No Wheezing, No Crepitus Chest-No S4, +S1, +S2, No S3, No Murmurs, No Rubs, No Gallops, No Ectopy Abdomen-Soft, Bowel Sounds Present, Non Tender, Non Distended, No Hepatomegaly, No Splenomegaly, No Palpable Masses, No Rebound, No Rigidity, No Guarding Musculoskeletal-Full Range of Motion Bilaterally, No CVAT Extremities-No Cyanosis, No Clubbing, No Edema Nuero-Cranial Nerves II-XII grossly intact, Motor WNL, DTRs WNL, Strength WNL, Non Focal Psych-Normal Mood Subjective Pt seen and examined in room 323-1. F/U lumbar surgery POD #[address] Mathews. Pt is doing very well. He is standing up in the room, "I feel great." He denies pain. Denies f/c/s, dizziness, lightheaded, chest pain, sob, n/v/d. Minimal flatus but that is normal for him given his extensive abd surgeries. Offers no complaints just praises the hospital staff and team. Review of Systems Review of Systems: All systems reviewed & are unremarkable except as noted in HPI & below Physical Exam Physical Exam: Gen: WD/WN,Tall, male, standing up at bedside NAD, A&O x3 HEENT: Normocephalic, atraumatic, conjunctivae moist, sclerae anicteric, mucous membranes moist. Lung: Clear to Auscultation bilaterally, no wheezes/rales/rhonchi Heart: Regular rate, regular rhythm, no murmurs, rubs, or gallops Abdomen: Soft, NT, ND +BS x 4 Extremities: No edema, TEDS in place, FRIEDA drain with serosangineous drainage, dressing CDI Skin: Warm, no rash, negative turgor. Results & Data Results & Data ([facility]) Vital Signs (Past 12 Hours) Vital Signs Temp Pulse Resp BP Pulse Ox 01/14/20 08:09 36.3 C L 63 16 129/77 95 01/14/20 03:05 36.4 C L 68 16 113/58 L 100 01/13/20 23:00 36.2 C L 64 16 152/87 H 93 01/13/20 21:31 36.7 C 78 18 155/91 H 97 Laboratory Results Short CBC 01/14/20 Range/Units 06:45 WBC 15.01 H (4.8-10.8) K/uL Hgb 14.4 (14.0-18.0) g/dL Hct 44.0 (42-52) % Plt Count 212 (130-400) K/uL BMP 01/14/20 06:45 Sodium 140 Potassium 4.0 Chloride 108 H Carbon Dioxide 27 BUN 20 H Creatinine 1.34 Glucose 130 H Calcium 8.4 L Medications Administered Ketorolac Tromethamine (Toradol) 15 mg IV Q6H [facility] Stop: 01/14/20 10:01 Last Admin: 01/14/20 04:14 Dose: 15 mg Documented by: [id number] Admin: 01/13/20 21:18 Dose: 15 mg Documented by: [id number] Admin: 01/13/20 16:37 Dose: 15 mg Documented by: [id number] Metoprolol Tartrate (Lopressor) 50 mg PO BID [facility] Stop: 02/12/20 20:59 Last Admin: 01/13/20 21:33 Dose: 50 mg Documented by: [id number] Miscellaneous (Order Awaiting Action) 1 ea N/A QS [facility] Stop: 02/12/20 15:59 Last Admin: 01/14/20 00:38 Dose: Not Given Documented by: [id number] Admin: 01/13/20 16:36 Dose: Not Given Documented by: [id number] Pantoprazole Sodium (Protonix) 40 mg PO BID [facility] Stop: 02/12/20 20:59 Last Admin: 01/13/20 21:17 Dose: 40 mg Documented by: [id number] Polyethylene Glycol (Miralax Powder Packet) 17 gm PO Q6 [facility] Stop: 02/13/20 05:59 Last Admin: 01/14/20 04:27 Dose: 17 gm Documented by: [id number] Senna/Docusate Sodium (Senokot S) 2 tab PO HS [facility] Stop: 02/12/20 20:59 Last Admin: 01/13/20 21:16 Dose: 2 tab Documented by: [id number] Discontinued Medications Acetaminophen (Tylenol) 1,000 mg PO PREOP [facility] Stop: 01/13/20 18:00 Last Admin: 01/13/20 09:35 Dose: 1,000 mg Documented by: [id number] Bacitracin (Bacitracin) Confirm Administered Dose 50,000 units .ROUTE .STK-MED ONE Stop: 01/13/20 09:48 Last Admin: 01/13/20 11:58 Dose: 50,000 units Documented by: [id number] Bupivacaine HCl/Epinephrine Bitart (Bupivacaine 0.25%-Epi [id number]) Confirm Administered Dose 30 ml .ROUTE .STK-MED ONE Stop: 01/13/20 09:47 Last Admin: 01/13/20 11:58 Dose: 23 ml Documented by: [id number] Celecoxib (Celebrex) 200 mg PO PREOP [facility] Stop: 01/13/20 18:00 Last Admin: 01/13/20 09:35 Dose: 200 mg Documented by: [id number] Fentanyl Citrate (Fentanyl Citrate) 50 mcg IV Q5M PRN PRN Reason: PACU Use Only-Pain Stop: 01/13/20 17:30 Last Admin: 01/13/20 12:50 Dose: 50 mcg Documented by: [id number] Admin: 01/13/20 12:45 Dose: 50 mcg Documented by: [id number] Gabapentin (Neurontin) 300 mg PO PREOP [facility] Stop: 01/13/20 18:00 Last Admin: 01/13/20 09:35 Dose: Not Given Documented by: [id number] Lactated Ringer's (Lr) 1,000 mls @ 15 mls/hr IV .Q24H [facility] Stop: 01/14/20 05:59 Last Infusion: 01/13/20 10:02 Dose: 0 mls/hr Documented by: [id number] Admin: 01/13/20 09:07 Dose: 15 mls/hr Documented by: [id number] Cefazolin Sodium (Ancef 2000mg) 2,000 mg in 15 mls @ 3.75 mls/min IV PREOP MALAIKA; Protocol Stop: 01/13/20 18:00 Last Admin: 01/13/20 10:02 Dose: 3.75 mls/min Documented by: [id number] Lactated Ringer's (Lr) 1,000 mls @ 100 mls/hr IV .Q10H [facility] Stop: 02/12/20 13:30 Last Infusion: 01/14/20 07:14 Dose: 0 mls/hr Documented by: [id number] Admin: 01/13/20 23:15 Dose: 100 mls/hr Documented by: [id number] Infusion: 01/13/20 23:15 Dose: 0 mls/hr Documented by: [id number] Admin: 01/13/20 14:08 Dose: 100 mls/hr Documented by: [id number] Cefazolin Sodium (Ancef 2000mg) 2,000 mg in 15 mls @ 3.75 mls/min IV Q8H [facility]; Protocol Stop: 01/14/20 02:03 Last Admin: 01/14/20 04:12 Dose: 3.75 mls/min Documented by: [id number] Admin: 01/13/20 17:45 Dose: 3.75 mls/min Documented by: [id number] Miscellaneous (Floseal Hemostatic Matrix 10ml) 10 ml TOP ONCE ONE Stop: 01/13/20 10:40 Last Admin: 01/13/20 11:59 Dose: 12 ml Documented by: [id number]
[2020-01-14] MEDS: FEXOFENADINE HCL 180 MG TAB PO SCH (10:09)
[2020-01-14] MEDS: CHOLECALCIFEROL 1,000 UNITS 25 MCG TAB PO SCH (10:12)
[2020-01-14] MEDS: PANTOprazole 40 MG TAB PO SCH ×2 (10:12→22:03)
[2020-01-14] MEDS: METOPROLOL TARTRATE 50 MG TAB PO SCH ×2 (10:12→22:04)
[2020-01-14] MEDS: ASCORBIC ACID 500 MG TAB PO SCH (10:13)
[2020-01-14] MEDS: CEROVITE ADV FORMULA TAB PO SCH (10:13)
[2020-01-14] MEDS: ZINC SULFATE 220 MG CAPSULE PO SCH (10:13)
[2020-01-14] MEDS: TAMSULOSIN HCL 0.4 MG CAP PO SCH (10:13)
[2020-01-14] MEDS: ATORVASTATIN 20 MG TAB PO SCH (10:13)
--- NOTE | 2020-01-14 11:39 | Orthopedic Progress Note ---
Date of Service January 14, 2020 Assessment & Plan (1) Neurogenic claudication due to lumbar spinal stenosis: This time we will continue physical therapy monitor his FRIEDA output hopefully discharge over the next day or so. Present on Admission?: Yes Admission and Anticipated Discharge Date Admission Date: January 13, 2020 Subjective Patient's back pain is controlled leg symptoms markedly improved. Physical Exam Physical Exam: On exam he is ambulating without difficulty. Good strength testing. Results & Data ([facility]) Vital Signs (Past 12 Hours) Vital Signs Temp Pulse Resp BP Pulse Ox 01/14/20 08:09 36.3 C L 63 16 129/77 95 01/14/20 03:05 36.4 C L 68 16 113/58 L 100
[2020-01-14] MEDS: DOCUSATE SODIUM/SENNA 50/8.6MG TAB PO SCH (22:03)
[2020-01-15] MEDS: POLYETHYLENE (MIRALAX) 17 GM PACK PO SCH ×4 (05:34→13:03)
[2020-01-15 05:51] LABS: Hematocrit (blood only) 43.5 % (42-52); Hemoglobin 13.7 g/dL (14.0-18.0); Mean Corpuscular Hgb Conc 31.5 g/dL (32-36); Mean Corpuscular Volume 95.4 fL (80-100); Mean Platelet Volume 9.7 fL (7.4-10.4); Platelet Count 190 K/uL (130-400); RDW Coefficient of Variation 12.7 % (11.5-14.5); Red Blood Count 4.56 M/uL (4.7-6.1); White Blood Count 10.72 K/uL (4.8-10.8)
[2020-01-15 06:24] LABS: BUN Creatinine Ratio 16.6 (10-20); Calcium 8.7 mg/dl (8.5-10.1); Creatinine Clr Calc Pharmacy 62.9 ml/min; Est GFR (African American) 59.7; Est GFR (Non-African American) 51.5; Potassium 4.5 mmol/L (3.5-5.1)
[2020-01-15] MEDS ORDERED: DEXAMETHASONE SOD PHOSPHATE 8 MG in SYRINGE 0 ML IV SCH (09:00)
[2020-01-15] MEDS: ASCORBIC ACID 500 MG TAB PO SCH (09:12)
[2020-01-15] MEDS: ZINC SULFATE 220 MG CAPSULE PO SCH (09:12)
[2020-01-15] MEDS: CEROVITE ADV FORMULA TAB PO SCH (09:12)
[2020-01-15] MEDS: TAMSULOSIN HCL 0.4 MG CAP PO SCH (09:12)
[2020-01-15] MEDS: ATORVASTATIN 20 MG TAB PO SCH (09:13)
[2020-01-15] MEDS: PANTOprazole 40 MG TAB PO SCH (09:13)
[2020-01-15] MEDS: CHOLECALCIFEROL 1,000 UNITS 25 MCG TAB PO SCH (09:13)
[2020-01-15] MEDS: FEXOFENADINE HCL 180 MG TAB PO SCH ×2 (09:13→09:20)
[2020-01-15] MEDS: METOPROLOL TARTRATE 50 MG TAB PO SCH (09:13)
--- NOTE | 2020-01-15 12:10 | Hospitalist Progress Note ---
Date of Service January 15, 2020 Assessment & Plan (1) Neurogenic claudication due to lumbar spinal stenosis: (2) Status post lumbar surgery: Status post L5-S1 lumbar decompression fusion POD #[address] Mathews EBL 150 mL; FRIEDA drain 460 mL Tolerated procedure well Pain/wound management per Ortho Activity and therapy as directed by Ortho Encourage incentive spirometry and wean O2 as able Follow H&H, preoperatively 17.0 and 50.9 (h/h 14.4 and 44.0) DVT prophylaxis SCDs and teds per Ortho (3) Leukocytosis: wbc 15k likely in setting of pre op steroids no fever or infectious sx (4) HTN (hypertension): On metoprolol and HCTZ as outpatient resume HCTZ (5) Hyperlipidemia: Continue statin (6) Prediabetes: A1c 5.9 Current lifestyle diet modifications FBS 130 (7) Chronic kidney disease, stage 3: baseline cr 1.2 bun/cr 20 and 1.34 today avoid nephrotoxic agents, monitor (8) Sleep apnea: Noncompliant with CPAP/BiPAP and has not used in 2010 Monitor O2 saturations (9) DVT prophylaxis: per ortho Disposition: per primary Follow up: PCP Dr. Gandhi upon discharge ROS-No Headache, No Visual Changes, No Nausea, No Vomiting, No Fever, No Chills, No Neck Pain or Stiffness, No Chest Pain, No Palpitations, No SOB, No HUMPHREY, No Cough, No Sputum, No Wheezing, No Abdominal Pain, No Diarrhea, No Hematemesis, No Hemoptysis, No Unexpected Weight Loss, No Flank pain, No Melena, No Hematochezia, No Frequency, No Urgency, No Burning, No Hematuria, No Rashes, No Diaphoresis. Appetite is Normal Physical Exam Gen-AAO x 3, NAD, Afebrile, +Drain Head-NCAT, EOMI, PERRLA, Anicteric Sclera, No Posterior Pharyngeal Erythema Neck-Supple, No JVD, No Thyromegaly, No Masses, No LAD, No Bruits Lungs-Clear to Auscultation Bilaterally, No Rales, No Rhonchi, No Wheezing, No Crepitus Chest-No S4, +S1, +S2, No S3, No Murmurs, No Rubs, No Gallops, No Ectopy Abdomen-Soft, Bowel Sounds Present, Non Tender, Non Distended, No Hepatomegaly, No Splenomegaly, No Palpable Masses, No Rebound, No Rigidity, No Guarding Musculoskeletal-Full Range of Motion Bilaterally, No CVAT Extremities-No Cyanosis, No Clubbing, No Edema Nuero-Cranial Nerves II-XII grossly intact, Motor WNL, DTRs WNL, Strength WNL, Non Focal Psych-Normal Mood Admission and Anticipated Discharge Date Admission Date: January 13, 2020 Results & Data Results & Data ([facility]) Vital Signs (Past 12 Hours) Vital Signs Temp Pulse Resp BP Pulse Ox 01/15/20 11:32 36.7 C 61 16 145/83 H 95 01/15/20 09:17 61 145/83 H 01/15/20 07:39 36.7 C 60 16 117/70 95
--- NOTE | 2020-01-15 14:29 | Discharge Summary ---
Date of Service January 15, 2020 Admission HPI Per Admitting Provider This is a 69-year-old male well-known to me the presents with worsening back and leg pain. After failing extensive course of nonoperative care is here for surgical invention. Principal Diagnosis Lumbar spinal stenosis with neurogenic claudication Discharge Data Allergies Allergy/AdvReac Type Severity Reaction Status Date / Time gabapentin AdvReac Intermediate dizziness Verified 01/13/20 08:53 Consultations 01/13/20 13:31 Consult Case Management - Discharge Planning Routine Consult Hospitalist Routine Procedures Performed Operation Date: 01/13/20 10:05 Actual Procedures p L5-S1 Decompression Fusion, Interbody Fusion, with Spinal Cord Monitoring(Not Applicable) - Jcarlos Mathews DO Ordered Studies 01/13/20 10:05 FL fluoroscopy <1hr Routine FL lumbar spine 2-3V Routine Hospital Course (1) Neurogenic claudication due to lumbar spinal stenosis: Patient underwent lumbar decompression fusion tolerated this well was taken to the orthopedic for postoperative. Postop day 1 he was up and ambulating progressed to postop day #2. FRIEDA drain decreasing probably. Excellent strength testing. Subsequently discharged home. Discharge orders and instructions found the chart for further review. Total Time Total Time Spent Total Time Spent (In Minutes): 20 minutes Discharge Plan Discharge Items Patient Disposition: Home - Self-Care Reason For Visit: Low Back Pain Discharge Diagnosis: Lumbar spinal stenosis with neurogenic claudication Activity: As commented below Non-emergency contact: Primary Care Provider Call non-emergency contact if: you have any medication questions Follow-up/Referrals: Arnol Gandhi DO [Primary Care Provider] - Diet: Regular Addtl Attending Provider Instructions: ACTIVITY RECOMMENDATIONS: SELF CARE INSTRUCTIONS AFTER THORACIC/LUMBAR FUSIONS 1. You may walk to your tolerance. It is good exercise for your legs and back. Expect some back and intermittent leg aches and pains. 2. You may perform "counter-top" level activities (make a sandwich, renetta with a project, etc.). 3. No bending or lifting of more than 10 pounds or back twisting of any nature (roll like a log when turning in bed). 4. You may ride in a car for 20-30 minutes at a time. No driving until after your first visit with your doctor. 5. Frequent changes of position and restricting sitting to 30 minutes at a time will help limit the amount of back spasms and stiffness you may experience. 6. You may discontinue the use of ambulatory aids (cane, crutches, etc.) once your strength and confidence allow. 7. You may flanging machine operator the shower and let water strike your incision when you arrive home at least once daily. Do not take a tub bath, sit in a hot tub or go into a swimming pool until after your first recheck in the office. SPECIAL CARE INSTRUCTIONS: VERY IMPORTANT TO READ AND REVIEW A. Your surgical incision has been closed with a cosmetic suture under the skin that will dissolve in about 6 weeks. In 14 days, you can use a pair of clean scissors and cut the suture that is left outside of the skin at the ends of your incision. 1. The small skin tapes can be removed 7 days after surgery if they have not fallen off by that point. 2. You may keep the wound open to air as much as possible to promote healing after post-op day number 5 unless told otherwise by your doctor. 3. If you think the wound looks like it is becoming infected (redness or worsening drainage) and/or you are experiencing fever, chill or worsening back pain and muscle spasms, contact the office so that we may evaluate you as soon as possible. B. Complications are uncommon, but please contact us if you have any signs or symptoms of: 1. wound infection (fever higher than 102.5 degrees F, redness, separation of wound, drainage, or increasing pain from the incision) 2. blood clots in legs (pain, swelling, redness and warmth in legs) 3. urinary tract infection (fever higher than 102.5 degrees F, burning upon urination or increased frequency of urination) 4. nerve problems (inability to walk on your toes or heels, numbness, loss of bowel or bladder control) 5. any other symptoms that concern you C. Please call the office at if you have any concerns or questions about your operation or recovery. D. No smoking! Smoking drastically decreases the chance of a solid fusion. E. Do not take any anti-inflammatory medications (Indocin, Advil, Motrin, Aspirin, Naprosyn, etc.) as these may inhibit the chance of a solid fusion. Tylenol is okay to take for pain. MANAGING PAIN AFTER SPINAL SURGERY 1. Narcotic medication is intended for short-term use and will be provided for surgical pain. Surgical pain usually lasts for a period of 4-6 weeks. Narcotic medication includes Percocet, Vicodin, Darvocet, Tylenol #3 or Lortab. 2. Longer-term pain is more appropriately treated with non-narcotic medication such as Tylenol ES. 3. Muscle spasm is not appropriately treated with narcotics. Muscle relaxers such as Soma, Flexeril or Skelaxin can be used along with Tylenol ES. 4. Remember that we all live with some "aches and pains". This is not unusual or uncommon after an injury or as we get older. a. Back pain is expected and may include muscle spasms for 4 to 6 weeks after surgery. The pain should gradually improve. If the pain worsens for no apparent reason, please contact the office. b. Intermittent leg pain may also be experienced and should not be concerned about unless it worsens for no apparent reason. If so, please contact the office. 5. We will provide appropriate medication within the normal guidelines of their prescribed use. We will also be very cautious and aware of potential abuse and extended duration of patients' medication needs. a. Pain medications are for your comfort and to assist with sleep and rest so that the tissue can heal. They are not provided in order to return to normal activity and should not be used through the day. To do so or worsening pain at night can result from ongoing tissue damage and development of tolerance to the prescribed medicine. 6. Please allow 2-3 days to process refills. Prescriptions will not be mailed but must be picked up at the office. FOLLOW UP VISIT: Keep your scheduled follow-up appointment. Any questions, please call the office at . Pending Studies at Discharge: No Stand-Alone Forms: My [facility], Opioid Pain Management, Smoking Cessation Medications and DC Order Prescriptions: New tramadol 50 mg tablet 50 mg PO Q6H PRN (Reason: pain, moderate) Qty: 30 RF: 0 oxycodone 5 mg tablet 5 mg PO Q6H PRN (Reason: pain, severe) Qty: 30 RF: 0 Continued pseudoephedrine HCl 120 mg Tablet Extended Release 120 mg PO Q12H PRN (Reason: Cough) RF: 0 fexofenadine 180 mg Tablet 180 mg PO QAM RF: 0 meloxicam 7.5 mg Tablet 7.5 mg PO DAILY PRN (Reason: Pain) RF: 0 tamsulosin 0.4 mg Capsule 0.4 mg PO QAM RF: 0 metoprolol tartrate 50 mg Tablet 50 mg PO BID RF: 0 omeprazole 20 mg Capsule,Delayed Release(Dr/Ec) 20 mg PO BID RF: 0 hydrocortisone 2.5 % Cream 1 applic TOPICAL TID RF: 0 hydrochlorothiazide 25 mg Tablet 25 mg PO QAM RF: 0 cholecalciferol (vitamin D3) [Vitamin D3] 25 mcg (1,000 unit) Tablet 1,000 unit PO QAM RF: 0 Baskin 3-6-9 1,200 mg Capsule 1 cap PO QAM RF: 0 atorvastatin 20 mg Tablet 20 mg PO QAM RF: 0 ascorbic acid (vitamin C) [Vitamin C] 1,000 mg Tablet 1 g PO QAM RF: 0 polyethylene glycol 3350 [Miralax] 17 gram Powder In Packet 17 g PO HS RF: 0 garlic 1,000 mg Capsule 1,000 mg PO QAM RF: 0 zinc 50 mg Tablet 50 mg PO QAM RF: 0 saw palmetto fruit 450 mg Capsule 450 mg PO QAM RF: 0 One-A-Day Men's Multivitamin 400-20-300 mcg Tablet 1 tab PO QAM RF: 0 Discharge Orders: Discharge Order (Routine); Ordered 01/15/20 Ordered By: Jcarlos Baron/Other Patient Handouts: After Back Surgery: Going Home, Back Surg Daily Life More Tips Admission Data Admit Date/Time: 01/13/20 12:20 Attending Provider: Jcarlos Mathews Admit Provider: Jcarlos Mathews Primary Care Provider: Arnol Gandhi Other Providers: Zafar Mckeon Other Interventions: Discharge Summary Assessment (RN) Last Done: 01/15/20 11:32 DC Date/Time DO NOT enter until pt leaves facility: 01/15/20 13:55
== END 2020-01-15 13:55 | disposition home or self-care (01) | DRG 455 ==
LOC: ASU 08:31 → 3E 12:20

== ENCOUNTER 2020-02-26 09:48 | Inpatient (IN) ==
--- NOTE | 2020-02-24 10:32 | Anesthesiology Consultation ---
Date of Service February 24, 2020 Assessment & Plan (1) Encounter for pre-operative examination: *Per nursing phone assessment on 02/23: Travel screen negative. No known COVID-19 positive contacts. No current COVID-19 related symptoms. COVID-19 test from was negative (done for preop). Patient had preop protocol COVID-19 testing 02/22 ([facility]). Awaiting results. - Cardiology office visit: 11/25/19: "Patient feeling well from a cardiovascular perspective. Denies chest pain or unusual shortness of breath. Metoprolol dose reduced approximately 2 months ago secondary to dyspnea.. Functional capacity is stable." F/U 6 months recommended. - S/P L5-S1 decompression/fusion: 01/13/20: Grade view 1, MAC#4, ETT 7.5 at [facility] Chart Review Chart Review: Acceptable Risk for Surgery and Patient NOT seen in Pre Admission Testing History Surgery Operation Date: 02/26/20 11:15 Proposed Procedures p L5-S1 Hardware Revision - Jcarlos Mathews DO Height/Weight Height: 6 ft 1 in Weight: 102.058 kg Allergies Allergy/AdvReac Type Severity Reaction Status Date / Time gabapentin AdvReac Intermediate dizziness Verified 02/24/20 08:24 Medications Home Medications Medication Instructions Recorded Confirmed Last Taken Silt 3-6-9 1 cap PO QAM 12/29/19 02/24/20 12/30/19 08:00 One-A-Day Men's Multivitamin 1 tab PO QAM 12/29/19 02/24/20 12/30/19 08:00 ascorbic acid (vitamin C) [Vitamin 1 g PO QAM 12/29/19 02/24/20 12/30/19 08:00 C] atorvastatin 20 mg PO QAM 12/29/19 02/24/20 01/12/20 08:00 cholecalciferol (vitamin D3) 1,000 unit PO QAM 12/29/19 02/24/20 12/30/19 08:00 [Vitamin D3] fexofenadine 180 mg PO QAM 12/29/19 02/24/20 01/12/20 08:00 garlic 1,000 mg PO QAM 12/29/19 02/24/20 12/30/19 08:00 hydrochlorothiazide 25 mg PO QAM 12/29/19 02/24/20 01/12/20 08:00 hydrocortisone 1 applic TOPICAL TID 12/29/19 02/24/20 Unknown meloxicam 7.5 mg PO DAILY PRN 12/29/19 02/24/20 Unknown metoprolol tartrate 50 mg PO BID 12/29/19 02/24/20 01/13/20 06:30 omeprazole 20 mg PO BID 12/29/19 02/24/20 01/13/20 06:30 polyethylene glycol 3350 [Miralax] 17 g PO HS 12/29/19 02/24/20 01/12/20 20:00 pseudoephedrine HCl 120 mg PO BID 12/29/19 02/24/20 01/12/20 08:00 saw palmetto fruit 450 mg PO QAM 12/29/19 02/24/20 12/30/19 08:00 tamsulosin 0.4 mg PO HS 12/29/19 02/24/20 01/13/20 06:30 zinc 50 mg PO QAM 12/29/19 02/24/20 12/30/19 08:00 oxycodone 5 mg PO Q6H PRN #30 tab 01/14/20 02/24/20 Unknown tramadol 50 mg PO Q6H PRN #30 tab 01/14/20 02/24/20 Unknown Past Medical History Medical History Chronic kidney disease, stage 3 DDD (degenerative disc disease) GERD (gastroesophageal reflux disease) controlled Hearing deficit B/L DOBBINS History of anxiety History of intestinal obstruction as child HTN (hypertension) Hyperlipidemia Introsusception s/p surgical correction at 11 days old Osteoarthritis Prediabetes lost weight and no meds Sleep apnea did not tolerate device/since has had significant weight loss Spinal stenosis Past Family History Family History Mother Diabetes Father Cancer Past Surgical History Surgical History History of cholecystectomy History of colonoscopy History of ERCP History of esophagogastroduodenoscopy (EGD) History of gastrostomy History of laparotomy x 2 for intestinal obstruction, lysis of adhesions - obstruction did not resolved after first surgery and 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 during second procedure requring emergency life flight to [facility] History of lumbar surgery X4, L5-S1 decompression/fusion: 01/13/20: Grade view 1, MAC#4, ETT 7.5 at [facility] History of tonsillectomy Status post trigger finger release Social History Smoking Status: Never smoker tobacco type: cigarettes Do You Dip or Chew Tobacco: No Hx Alcohol Use: Yes alcohol intake frequency: holidays/special occasions only Hx Substance Use: No substance use type: does not use Testing Laboratory Results 01/15/20 WBC 10.72 H/H 13.7/43.5 PLATELETS 190 SODIUM 141 POTASSIUM 4.5 CHLORIDE 108 CO2 31 BUN 23 CREATININE 1.37 GLUCOSE 100 12/29/19 PT 10.4 PTT 27.3 INR 1.0 TYPE AND SCREEN O+ Ab- Electrocardiogram Date: 12/15/19 SB with first degree AVB at 58bpm. No significant change compared to 04/30/19 per dowel maker review. Chest X-Ray Date: 09/03/19 Findings: + NAD
[2020-02-26] MEDS ORDERED: GLYCOPYRROLATE 0.2 MG/ML VIAL ONE (11:40)
[2020-02-26] MEDS ORDERED: NEOSTIGMINE METHYLSULFATE 1 MG/ML 10ML VIAL ONE (11:40)
[2020-02-26] MEDS ORDERED: ONDANSETRON INJ 2 MG/ML 2 ML VIAL ONE (11:40)
[2020-02-26] MEDS ORDERED: ROCURONIUM BROMIDE 10 MG/ML 5 ML VIAL IV ONE ×2 (11:40→13:03)
[2020-02-26] MEDS ORDERED: fentaNYL citrate 100 MCG/2 ML VIAL ONE (11:40)
[2020-02-26] MEDS ORDERED: MIDAZOLAM HCL 1 MG/ML 2ML VIAL ONE (11:40)
[2020-02-26] MEDS ORDERED: LIDOCAINE HCL 2% 2 ML VIAL/AMP(20MG/ML) INFIL ONE (11:40)
[2020-02-26] MEDS ORDERED: PROPOFOL IV EMULSION 10 MG/ML 20 ML VIAL IV ONE (11:40)
--- NOTE | 2020-02-26 11:51 | History & Physical Bridge Note ---
Date of Service February 26, 2020 History & Physical Bridge Note I have examined the patient, reviewed the History & Physical and in the interval since the performance of the History & Physical I have noted the following changes of clinical significance: no changes noted
--- NOTE | 2020-02-26 11:52 | History & Physical Report ---
Date of Service February 26, 2020 Assessment & Plan (1) Postoperative state: L5-S1 hardware revision Present on Admission?: Yes History of Present Illness Chief Complaint: Back and right leg pain Primary Care Provider: Arnol Gandhi DO This is a 69-year-old male known to me the presents with worsening right leg pain throughout his postoperative course. There is evidence of posterior migration of his interbody cage. Subsequently he is here for revision. Allergies Allergy/AdvReac Type Severity Reaction Status Date / Time gabapentin AdvReac Intermediate dizziness Verified 02/26/20 10:20 Home Medications Home Medications Medication Instructions Recorded Confirmed Type [place] 3-6-9 1 cap PO QAM 12/29/19 02/26/20 History One-A-Day Men's Multivitamin 1 tab PO QAM 12/29/19 02/26/20 History ascorbic acid (vitamin C) [Vitamin 1 g PO QAM 12/29/19 02/26/20 History C] atorvastatin 20 mg PO QAM 12/29/19 02/26/20 History cholecalciferol (vitamin D3) 1,000 unit PO QAM 12/29/19 02/26/20 History [Vitamin D3] fexofenadine 180 mg PO QAM 12/29/19 02/26/20 History garlic 1,000 mg PO QAM 12/29/19 02/26/20 History hydrochlorothiazide 25 mg PO QAM 12/29/19 02/26/20 History hydrocortisone 1 applic TOPICAL TID 12/29/19 02/26/20 History meloxicam 7.5 mg PO DAILY PRN 12/29/19 02/26/20 History metoprolol tartrate 50 mg PO BID 12/29/19 02/26/20 History omeprazole 20 mg PO BID 12/29/19 02/26/20 History polyethylene glycol 3350 [Miralax] 17 g PO HS 12/29/19 02/26/20 History pseudoephedrine HCl 120 mg PO BID 12/29/19 02/26/20 History saw palmetto fruit 450 mg PO QAM 12/29/19 02/26/20 History tamsulosin 0.4 mg PO HS 12/29/19 02/26/20 History zinc 50 mg PO QAM 12/29/19 02/26/20 History oxycodone 5 mg PO Q6H PRN #30 tab 01/14/20 02/26/20 Rx tramadol 50 mg PO Q6H PRN #30 tab 01/14/20 02/26/20 Rx Past Med/Surg History Medical History Chronic kidney disease, stage 3 DDD (degenerative disc disease) GERD (gastroesophageal reflux disease) controlled Hearing deficit B/L DOBBINS History of anxiety History of intestinal obstruction as child HTN (hypertension) Hyperlipidemia Introsusception s/p surgical correction at 11 days old Osteoarthritis Prediabetes lost weight and no meds Sleep apnea did not tolerate device/since has had significant weight loss Spinal stenosis Surgical History History of cholecystectomy History of colonoscopy History of ERCP History of esophagogastroduodenoscopy (EGD) History of gastrostomy History of laparotomy x 2 for intestinal obstruction, lysis of adhesions - obstruction did not resolved after first surgery and 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 during second procedure requring emergency life flight to [facility] History of lumbar surgery X4, L5-S1 decompression/fusion: 01/13/20: Grade view 1, MAC#4, ETT 7.5 at [facility] History of tonsillectomy Status post trigger finger release Family History Mother Diabetes Father Cancer Social History Smoking Status: Never smoker Second Hand Exposure: No; Do You Dip or Chew Tobacco: No; Tobacco Cessation Education Requested by Patient: No Hx Alcohol Use: Yes Hx Substance Use: No Preferred Language: Afghan Communication Ability: Effective Brush Painter Required: No Beliefs That Will Affect Care: None Current Living Situation: Spouse Other Information That Helps Us Care for You: No Feels Safe at Home: Yes Safety Concerns: Feels Safe At This Time Physical Exam Physical Exam: Patient is alert and oriented neurologically intact. Heart regular rate and rhythm. Lungs clear to auscultation. Results & Data Vital Signs (Past 12 Hours) Vital Signs Temp Pulse Resp BP Pulse Ox 02/26/20 10:18 36.7 C 65 20 140/84 98
[2020-02-26] MEDS ORDERED: ePHEDrine sulfate 50 MG/ML AMP IV PRN (12:03)
[2020-02-26] MEDS ORDERED: METOCLOPRAMIDE HCL INJ 5 MG/ML 2 ML VIAL IV PRN ×2 (12:03→15:15)
[2020-02-26] MEDS ORDERED: PROMETHAZINE HCL 12.5 MG in SODIUM CHLORIDE 0.9% 50 ML IV PRN ×2 (12:03→15:15)
[2020-02-26] MEDS ORDERED: ATROPINE SULFATE 0.1 MG/ML 10ML SYR IV PRN (12:03)
[2020-02-26] MEDS ORDERED: ONDANSETRON INJ 2 MG/ML 2 ML VIAL IV PRN ×2 (12:03→15:15)
[2020-02-26] MEDS ORDERED: HYDROmorphone INJ 2 MG/ML SYR/VIAL IV PRN (12:03)
[2020-02-26] MEDS ORDERED: BACITRACIN INJ 50,000 UNIT VIAL ONE (12:14)
[2020-02-26] MEDS ORDERED: BUPIVACAINE/EPINEPHRINE 0.25% 1:200,000 30 ML VIAL ONE (12:15)
[2020-02-26] MEDS ORDERED: PHENYLEPHRINE 100MCG/ML 5ML SYR ONE (13:24)
--- NOTE | 2020-02-26 13:26 | Operative Report ---
Post Operative Report Pre & Post Diagnosis Operation Date: 02/26/20 11:15 Pre-Op Diagnosis: migration of interbody cage Post-Op Diagnosis: migration of interbody cage I identified the patient and participated in the time-out.: Yes Procedure Operation Date: 02/26/20 11:15 Actual Procedures #1 revision decompression L5-S1. #2 revision of interbody cage position L5-S1. Surgeon Jcarlos Mathews, DO Cruise Director Power Nava Estimated Blood Loss 50 Findings Consistent with Post-Op Diagnosis Specimens None Indications This is a 69-year-old male well-known to me the presents with worsening sciatica status post lumbar decompression fusion. X-rays demonstrated posterior migration of the interbody cage. Subsequently we chose to perform revision. Description of Procedure Patient was met with preoperatively case discussed all questions were addressed by them and patient was taken back to op suite underwent an patient placed in a prone position the Angel table on top of the Kyrie frame. All bony prominences well-padded eyes inspected to ensure no external pressure placed upon them. This point the lumbar spine was prepped and draped in normal sterile fashion. Sharp dissection with the assistance of Bovie cautery performed down to and exposing the instrumentation at L5-S1. I then performed a revision decompression extending the decompression out on the right L4-5 L5-S1 facets and foramina. Identified the interbody cage. It had obvious posterior migration and appeared loose. I then loosened the end caps on the right side pedicle screws. I then tamped the cage into an anterior position compressed the pedicle screws and locked into final position. I was able to press on the cage several times noting no evidence of any loosening or motion. The incision was then copiously irrigated 15 round FRIEDA drain inserted and then closed with 1 Vicryl the fascia 2-0 Vicryl subcutaneously and 4 Monocryl for final skin closure. Steri- Strips dressings placed. Patient waken taken to PACU stable condition. Please note Power sandoval was present at the entire procedure involved the patient positioning complex portions of the surgery and final skin closure. I attest to the content of the Intraoperative Record and any orders documented therein. Any exceptions are noted below.
--- NOTE | 2020-02-26 13:41 | Fluoroscopy Report ---
FL spine 1V any level CLINICAL HISTORY: L5-S1 HARDWARE REVISION COMPARISON STUDY: Lumbar spine fluoroscopic images January 13, 2020. FLUOROSCOPY TIME: 10.9 seconds. FLUOROSCOPIC IMAGES: 1 FINDINGS: Surgical retractors are noted. L5-S1 discectomies and interbody spacer placement as noted. Bilateral pedicle screws at the L5 and S1 levels are noted. An L4-L5 discectomy with interbody spacer placement is partially imaged. IMPRESSION: Fluoroscopy provided, as described above. ACT 112: Negative or not required by law. Electronically signed by: Edgar Faust M.D. 02/26/2020 1:39 PM
[2020-02-26] MEDS: fentaNYL citrate 100 MCG/2 ML VIAL IV PRN ×2 (14:11→14:32)
[2020-02-26] MEDS ORDERED: FAMOTIDINE 20 MG TAB PO PRN (15:15)
[2020-02-26] MEDS ORDERED: DO NOT ADMINISTER FLU VACCINE PRN (15:15)
[2020-02-26] MEDS ORDERED: DO NOT ADMINISTER PNEUMOCOCCAL VACCINE PRN (15:15)
[2020-02-26] MEDS ORDERED: LORazepam 0.5 MG TAB PO PRN (15:15)
[2020-02-26] MEDS ORDERED: ACETAMINOPHEN 500 MG TAB PO PRN (15:15)
[2020-02-26] MEDS ORDERED: bisacodyL 10 MG SUPP PR PRN (15:15)
[2020-02-26] MEDS ORDERED: OXYCODONE HCL IR 5 MG TAB (IMMEDIATE RELEASE) PO PRN (15:15)
[2020-02-26] MEDS ORDERED: HYDROmorphone INJ 0.5 MG/0.5 ML SYR IV PRN (15:15)
[2020-02-26] MEDS ORDERED: SODIUM CHLORIDE 0.9% 1000ML 1,000 ML IV SCH (15:15)
[2020-02-26] MEDS ORDERED: MAGNESIUM HYDROXIDE SUSP 30 ML UDC PO PRN (15:15)
[2020-02-26] MEDS ORDERED: HYDROmorphone INJ 1 MG/ML SYRINGE IV PRN (15:15)
[2020-02-26] MEDS ORDERED: SOD PHOSPHATE/SOD BIPHOSPHATE ENEMA 132 ML BTL PR PRN (15:15)
[2020-02-26] MEDS ORDERED: ONDANSETRON 4 MG OD TAB PO PRN (15:15)
[2020-02-26] MEDS ORDERED: ALUMINUM/MAGNESIUM SUSP 30 ML UDC PO PRN (15:15)
[2020-02-26] MEDS ORDERED: TRAMADOL HCL 50 MG TABLET PO PRN (15:15)
[2020-02-26] MEDS ORDERED: LORazepam 0.5 MG/1 ML VIAL IV PRN (15:15)
[2020-02-26] MEDS ORDERED: ACETAMINOPHEN 1,000 MG/100 ML VIAL IV PRN (15:15)
[2020-02-26] MEDS ORDERED: NALOXONE HCL 0.4 MG/1 ML VIAL/CARP IV PRN (15:15)
--- NOTE | 2020-02-26 15:36 | Anesthesiology Progress Note ---
Date of Service February 26, 2020 Anesthesia Post Procedure Vital Signs Vital Signs: Temp Pulse Pulse Resp BP Pulse Ox 02/26/20 14:50 63 12 120/59 L 97 02/26/20 14:40 57 L 12 119/54 L 98 02/26/20 14:30 36.3 C L 63 18 124/70 95 02/26/20 14:20 63 18 106/68 98 02/26/20 14:10 66 16 128/72 97 02/26/20 14:00 66 15 138/78 100 02/26/20 13:54 36.3 C L 74 14 136/67 99 02/26/20 10:18 36.7 C 65 20 140/84 98 Pain Intensity Lower Back: Pain Intensity: 3 Transfer of Care Handoff Completed per policy Notes Mental Status: alert / awake / arousable and participated in evaluation Patient Amnestic to Procedure: Yes Nausea / Vomiting: adequately controlled Pain: adequately controlled Airway Patency, RR, SpO2: stable & adequate BP & HR: stable & adequate Hydration State: stable & adequate Anesthetic Complications: no major complications apparent
[2020-02-26] MEDS ORDERED: PSEUDOEPHEDRINE HCL 30 MG TAB PO PRN (18:00)
[2020-02-26] MEDS ORDERED: DOCUSATE SODIUM/SENNA 50/8.6MG TAB PO SCH (21:00)
[2020-02-26] MEDS ORDERED: TAMSULOSIN HCL 0.4 MG CAP PO SCH (21:00)
[2020-02-26] MEDS: PANTOprazole 40 MG TAB PO SCH (21:10)
[2020-02-26] MEDS: CEFAZOLIN 2000MG 2,000 MG/15 ML SYR IV SCH (21:11)
[2020-02-26] MEDS: METOPROLOL TARTRATE 50 MG TAB PO SCH (21:11)
[2020-02-27] MEDS: CEFAZOLIN 2000MG 2,000 MG/15 ML SYR IV SCH (03:39)
[2020-02-27] MEDS ORDERED: POLYETHYLENE (MIRALAX) 17 GM PACK PO SCH (06:00)
[2020-02-27] MEDS: METOPROLOL TARTRATE 50 MG TAB PO SCH (08:50)
[2020-02-27] MEDS: PANTOprazole 40 MG TAB PO SCH (08:50)
[2020-02-27] MEDS ORDERED: ASCORBIC ACID 500 MG TAB PO SCH (09:00)
[2020-02-27] MEDS ORDERED: FEXOFENADINE HCL 180 MG TAB PO SCH (09:00)
[2020-02-27] MEDS ORDERED: hydroCHLOROthiazide 25 MG TAB PO SCH (09:00)
[2020-02-27] MEDS ORDERED: CHOLECALCIFEROL 1,000 UNITS 25 MCG TAB PO SCH (09:00)
[2020-02-27] MEDS ORDERED: ATORVASTATIN 20 MG TAB PO SCH (09:00)
[2020-02-27] MEDS ORDERED: MULTIVITAMIN TAB PO SCH (09:00)
--- NOTE | 2020-02-27 09:50 | Discharge Summary ---
Date of Service February 27, 2020 Admission HPI Per Admitting Provider This is a 69-year-old male known to me the presents with worsening right leg pain throughout his postoperative course. There is evidence of posterior migration of his interbody cage. Subsequently he is here for revision. Principal Diagnosis Lumbar spinal stenosis with radiculopathy Discharge Data Allergies Allergy/AdvReac Type Severity Reaction Status Date / Time gabapentin AdvReac Intermediate dizziness Verified 02/26/20 10:20 Consultations 02/26/20 15:15 Consult Case Management - Discharge Planning Routine Procedures Performed Operation Date: 02/26/20 11:15 Actual Procedures p L5-S1 Hardware Revision, Spinal Cord Monitoring(Not Applicable) - Jcarlos Mathews DO Ordered Studies 02/26/20 11:15 FL fluoroscopy <1hr Routine FL spine 1V any level Routine Hospital Course (1) Neurogenic claudication due to lumbar spinal stenosis: Patient underwent revision decompression fusion tolerated well second orthopedic for postoperative. Postop day 1 is up and ambulating leg pain ma rkedly improved. FRIEDA drain decreasing probably. Subsequent discharge home. Discharge orders instructions from the chart for further review. Total Time Total Time Spent Total Time Spent (In Minutes): 20 minutes Discharge Plan Discharge Items Patient Disposition: Home - Self-Care Reason For Visit: Spinal stenosis, Lumbar Region with Neurogenic Cla Discharge Diagnosis: Lumbar spinal stenosis with radiculopathy Activity: As commented below Non-emergency contact: Primary Care Provider Call non-emergency contact if: you have any medication questions Follow-up/Referrals: Arnol Gandhi DO [Primary Care Provider] - Diet: Regular Addtl Attending Provider Instructions: ACTIVITY RECOMMENDATIONS: SELF CARE INSTRUCTIONS AFTER THORACIC/LUMBAR FUSIONS 1. You may walk to your tolerance. It is good exercise for your legs and back. Expect some back and intermittent leg aches and pains. 2. You may perform "counter-top" level activities (make a sandwich, renetta with a project, etc.). 3. No bending or lifting of more than 10 pounds or back twisting of any nature (roll like a log when turning in bed). 4. You may ride in a car for 20-30 minutes at a time. No driving until after your first visit with your doctor. 5. Frequent changes of position and restricting sitting to 30 minutes at a time will help limit the amount of back spasms and stiffness you may experience. 6. You may discontinue the use of ambulatory aids (cane, crutches, etc.) once your strength and confidence allow. 7. You may industrial spraypainter the shower and let water strike your incision when you arrive home at least once daily. Do not take a tub bath, sit in a hot tub or go into a swimming pool until after your first recheck in the office. SPECIAL CARE INSTRUCTIONS: VERY IMPORTANT TO READ AND REVIEW A. Your surgical incision has been closed with a cosmetic suture under the skin that will dissolve in about 6 weeks. In 14 days, you can use a pair of clean scissors and cut the suture that is left outside of the skin at the ends of your incision. 1. The small skin tapes can be removed 7 days after surgery if they have not fallen off by that point. 2. You may keep the wound open to air as much as possible to promote healing after post-op day number 5 unless told otherwise by your doctor. 3. If you think the wound looks like it is becoming infected (redness or worsening drainage) and/or you are experiencing fever, chill or worsening back pain and muscle spasms, contact the office so that we may evaluate you as soon as possible. B. Complications are uncommon, but please contact us if you have any signs or symptoms of: 1. wound infection (fever higher than 102.5 degrees F, redness, separation of wound, drainage, or increasing pain from the incision) 2. blood clots in legs (pain, swelling, redness and warmth in legs) 3. urinary tract infection (fever higher than 102.5 degrees F, burning upon urination or increased frequency of urination) 4. nerve problems (inability to walk on your toes or heels, numbness, loss of bowel or bladder control) 5. any other symptoms that concern you C. Please call the office at if you have any concerns or questions about your operation or recovery. D. No smoking! Smoking drastically decreases the chance of a solid fusion. E. Do not take any anti-inflammatory medications (Indocin, Advil, Motrin, Aspirin, Naprosyn, etc.) as these may inhibit the chance of a solid fusion. Tylenol is okay to take for pain. MANAGING PAIN AFTER SPINAL SURGERY 1. Narcotic medication is intended for short-term use and will be provided for surgical pain. Surgical pain usually lasts for a period of 4-6 weeks. Narcotic medication includes Percocet, Vicodin, Darvocet, Tylenol #3 or Lortab. 2. Longer-term pain is more appropriately treated with non-narcotic medication such as Tylenol ES. 3. Muscle spasm is not appropriately treated with narcotics. Muscle relaxers such as Soma, Flexeril or Skelaxin can be used along with Tylenol ES. 4. Remember that we all live with some "aches and pains". This is not unusual or uncommon after an injury or as we get older. a. Back pain is expected and may include muscle spasms for 4 to 6 weeks after surgery. The pain should gradually improve. If the pain worsens for no apparent reason, please contact the office. b. Intermittent leg pain may also be experienced and should not be concerned about unless it worsens for no apparent reason. If so, please contact the office. 5. We will provide appropriate medication within the normal guidelines of their prescribed use. We will also be very cautious and aware of potential abuse and extended duration of patients' medication needs. a. Pain medications are for your comfort and to assist with sleep and rest so that the tissue can heal. They are not provided in order to return to normal activity and should not be used through the day. To do so or worsening pain at night can result from ongoing tissue damage and development of tolerance to the prescribed medicine. 6. Please allow 2-3 days to process refills. Prescriptions will not be mailed but must be picked up at the office. FOLLOW UP VISIT: Keep your scheduled follow-up appointment. Any questions, please call the office at . Pending Studies at Discharge: No Stand-Alone Forms: [facility], Smoking Cessation Medications and DC Order Prescriptions: New oxycodone 5 mg tablet 5 mg PO Q6H PRN (Reason: pain, severe) Qty: 20 RF: 0 Continued pseudoephedrine HCl 120 mg Tablet Extended Release 120 mg PO BID RF: 0 fexofenadine 180 mg Tablet 180 mg PO QAM RF: 0 meloxicam 7.5 mg Tablet 7.5 mg PO DAILY PRN (Reason: Pain) RF: 0 tamsulosin 0.4 mg Capsule 0.4 mg PO HS RF: 0 metoprolol tartrate 50 mg Tablet 50 mg PO BID RF: 0 omeprazole 20 mg Capsule,Delayed Release(Dr/Ec) 20 mg PO BID RF: 0 hydrocortisone 2.5 % Cream 1 applic TOPICAL TID RF: 0 hydrochlorothiazide 25 mg Tablet 25 mg PO QAM RF: 0 cholecalciferol (vitamin D3) [Vitamin D3] 25 mcg (1,000 unit) Tablet 1,000 unit PO QAM RF: 0 [place] 3-6-9 1,200 mg Capsule 1 cap PO QAM RF: 0 atorvastatin 20 mg Tablet 20 mg PO QAM RF: 0 ascorbic acid (vitamin C) [Vitamin C] 1,000 mg Tablet 1 g PO QAM RF: 0 polyethylene glycol 3350 [Miralax] 17 gram Powder In Packet 17 g PO HS RF: 0 garlic 1,000 mg Capsule 1,000 mg PO QAM RF: 0 zinc 50 mg Tablet 50 mg PO QAM RF: 0 saw palmetto fruit 450 mg Capsule 450 mg PO QAM RF: 0 One-A-Day Men's Multivitamin 400-20-300 mcg Tablet 1 tab PO QAM RF: 0 tramadol 50 mg tablet 50 mg PO Q6H PRN (Reason: pain, moderate) Qty: 30 RF: 0 oxycodone 5 mg tablet 5 mg PO Q6H PRN (Reason: pain, severe) Qty: 30 RF: 0 Discharge Orders: Discharge Order (Routine); Ordered 02/27/20 Ordered By: Jcarlos Mathews Admission Data Admit Date/Time: 02/26/20 13:59 Attending Provider: Jcarlos Mathews Admit Provider: Jcarlos Mathews Primary Care Provider: Arnol Gandhi
[2020-02-27] MEDS ORDERED: DEXAMETHASONE SOD PHOSPHATE 8 MG in SYRINGE 0 ML IV ONE (10:15)
== END 2020-02-27 12:20 | disposition home or self-care (01) | DRG 517 ==
LOC: ASU 09:48 → 3E 13:59